=== PATIENT | male | born 1930 | race Caucasian/White ===

== ENCOUNTER → 2017-11-30 | Day surgery (SDC) | payer OTHER, MEDICARE ==
[~2017-11-30] VITALS: Ht 167.6 cm; Wt 62.1 kg
[~2017-11-30] MED LIST: AVAPRO150 M1 PO; CALCIUM600 M3 PO; CO Q-10100 MG PO; IPRATROPIUM BRO15 M1 NAS; KIDS COD LIVER1 EACH PO; LOSARTAN POTAS100 M1 PO; LOSARTAN-HCTZ1 EACH PO; OMEPRAZOLE40 M1 PO; ULTRAM50 M1 PO; ZOFRAN ODT4 M1 SL
--- NOTE | 2017-11-30 14:18 | Operative Report ---
Operative/Inv Procedure Report Surgery Date: 11/30/17 Name of Procedure: Right inguinal hernia repair with mesh, recurrent Pre-Operative Diagnosis: Recurrent right inguinal hernia Post-Operative Diagnosis: Same Estimated Blood Loss: less than 50ml Surgeon/Service Delivery Consultant: Riley MEREDITH,Shola Flowers/Blank Gregorio APRN Anesthesia: local monitored anesthesi Implants: Pariatex progrip Operative Indication: Patient presents with incarcerated right inguinal hernia, recurrent after laparoscopic repair approximately 10 years ago at an outside facility. He has intermittent obstructive findings and presents for elective repair Operative/Procedure Note Note: After consent he was brought to the operating room in supine. General anesthesia was obtained and is right groin is prepped and draped. The skin was after local anesthesia and a transverse incision made sharply. This obtains tissues with cautery and suture ligated the superficial epigastric vein. Using cautery dissection came down through Bonny's fascia down to the external oblique. Self-retaining retractor was placed. The cord was avulsed with local anesthesia and incision made along the direction of the fibers. The external oblique was then divided and elevated. The cord structures were circumferentially dissected with blunt dissection. A Tika drain was placed around it. We then dissected the hernia sac off of the cord structures. It is quite difficult as the vein and vas were somehow . There is a hernia sac in between them. It appeared to be more of an indirect recurrence. Although it was difficult to tell given the size of the hernia. Eventually able to free everything up and reduce the hernia. The tissue around the indirect area was sutured to keep the sac reduced. I then placed an onlay of [employer] pro-clinical law professor mesh. He was placed on the cord structures and anchored to itself. It was attached to the fascia at the pubic tubercle along the shelving edge and superior medially. This was performed with 2-0 Prolene. The wound was then irrigated with normal saline. The external oblique was then closed over the mesh with a running 2-0 Vicryl suture. The incision was then closed in layers with 3-0 and 4-0 Vicryl sutures. Steri-Strips and sterile dressing applied. Sponge and needle counts are correct Findings: Large indirect recurrence CC: Marcio MEREDITH,Chavez
== END ==
LOC: STS 01:41
DX: K40.31 Unilateral inguinal hernia, with obstruction, without gangrene, recurrent (principal); Z87.19 Personal history of other diseases of the digestive system; I10 Essential (primary) hypertension; Z87.891 Personal history of nicotine dependence
CPT/HCPCS: C1781; J0690; J3490

== ENCOUNTER 2017-12-07 12:35 | Emergency (ER) | payer OTHER, MEDICARE ==
[~2017-12-07] VITALS: Ht 167.6 cm; Wt 62.1 kg
[2017-12-07 13:10] LABS: ABSOLUTE BASOPHIL COUNT 0.1 /CUMM (0.0-0.2); ABSOLUTE EOSINOPHIL COUNT 0.2 /CUMM (0.0-0.7); ABSOLUTE GRANULOCYTE CT 7.5 /CUMM (1.4-6.5); ABSOLUTE LYMPH COUNT 1.5 /CUMM (1.2-3.4); ABSOLUTE MONOCYTE COUNT 1.1 /CUMM (0.10-0.60); BASOPHIL % 0.6 % (0.0-2.0); EOSINOPHIL % 1.9 % (0-5); HEMATOCRIT 43.4 % (42-52); MEAN CORPUSCULAR HGB 32.7 PG (27.0-31.0); MEAN CORPUSCULAR HGB CONC 34.9 G/DL (33.0-37.0); MEAN CORPUSCULAR VOLUME 93.6 FL (80.0-94.0); MEAN PLATELET VOLUME 8.2 FL (7.4-10.4); PLATELET COUNT 318 /CUMM (130-400); RBC DISTRIBUTION WIDTH 13.1 % (11.5-14.5); RED BLOOD CELL CT 4.64 /CUMM (4.70-6.10); WHITE BLOOD CELL COUNT 10.4 /CUMM (4.8-10.8)
--- NOTE | 2017-12-07 14:11 | ED GENERAL ADULT ---
History of Present Illness General Chief Complaint: Male Genitourinary Problems Stated Complaint: BLEEDING AND DISCOMFORT TO SCROTUM S/P OPERATION Source: patient Exam Limitations: poor historian Vital Signs & Intake/Output Vital Signs & Intake/Output Vital Signs Date Time Temp Pulse Resp B/P B/P Pulse O2 O2 Flow FiO2 Mean Ox Delivery Rate 12/07 1704 97.3 61 18 153/77 99 Room Air 12/07 1241 99.1 83 18 154/96 98 Room Air Allergies Coded Allergies: aspirin (UNKNOWN PER PT 11/28/17) Reconcile Medications Calcium (Elemental-Fr Calcarb) (Calcium) (Unknown Strength) TABLET (Unknown Dose) PO DAILY SUPPLEMENT (Reported) Ipratropium [place] 42 MCG (0.06 %) SPRAY 1 SPRAY MINI DAILY ALLERGIES ( Reported) Irbesartan (Avapro) 150 MG TABLET 1 TAB PO DAILY HEART (Reported) Losartan Potassium 100 MG TABLET 1 TAB PO DAILY HEART (Reported) Omeprazole 40 MG CAPSULE.DR 1 CAP PO DAILY GASTRITIS Tramadol HCl (Ultram) 50 MG TABLET 1 TAB PO Q6P PRN pain Ubidecarenone (Co Q-10) (Unknown Strength) CAPSULE (Unknown Dose) PO DAILY SUPPLEMENT (Reported) Vitamin A/C/D3/Cod Liver Oil (Kids Cod Liver Oil +D Tab Chew) (Unknown Strength) TAB.CHEW (Unknown Dose) PO DAILY SUPPLEMENT (Reported) Triage Note: PT STATES HE WAS BLEEDING FROM ONE OF HIS TESTICLES. PT STATES HE WENT TO HIS PCP DR. TAYLOR SAW SOMETHING IN HIS SCROTOM AND WANTED HIM TO BE CHECKED OUT BY DR. MORALES ? INCARCERATED HERNIA. PT DENIES PAIN AND STATES HIS LAST BM WAS THIS AM AND WAS NORMAL FOR HIM. Triage Nurses Notes Reviewed? yes Onset: Abrupt Duration: hour(s): Timing: recent history HPI: 12/07/17 3 PM 87-year-old man presents to the emergency department for right-sided scrotal bleeding. The patient had surgery a week ago by Dr. Morales for an inguinal hernia repair. He had been doing well although he's had some pain. Today he saw some bleeding and he saw his primary care doctor who recommended he be referred to the emergency department for surgical evaluation. On physical examination he has no active bleeding. He does have some induration below the incision site which is nontender. No active bleeding. The testicles are nontender. Past History Travel History Traveled to [place] past 21 day No Medical History Any Pertinent Medical History? see below for history Neurological: NONE EENT: NONE Cardiovascular: hypertension Respiratory: NONE Gastrointestinal: NONE Hepatic: NONE Renal: NONE Musculoskeletal: NONE Psychiatric: NONE Endocrine: NONE Blood Disorders: NONE Cancer(s): NONE Surgical History Surgical History: none Psychosocial History What is your primary language Czech Tobacco Use: Never used ETOH Use: denies use Illicit Drug Use: denies illicit drug use Family History Hx Contributory? No Review of Systems Review of Systems Constitutional: Denies: fever. EENTM: Reports: no symptoms. Respiratory: Denies: short of breath. Cardiovascular: Denies: chest pain. GI: Reports: abdominal pain. Genitourinary: Reports: no symptoms. Musculoskeletal: Reports: see HPI. Skin: Reports: see HPI. Neurological/Psychological: Reports: no symptoms. Hematologic/Endocrine: Reports: no symptoms. Immunologic/Allergic: Reports: no symptoms. Physical Exam Physical Exam General Appearance: alert, awake, anxious, mild distress Head: atraumatic Eyes: Bilateral: normal appearance, PERRL, EOMI. Ears, Nose, Throat: normal ENT inspection Neck: normal inspection Respiratory: no respiratory distress Cardiovascular: regular rate/rhythm Gastrointestinal: non-tender Back: normal range of motion Extremities: no edema Neurologic/Psych: no motor/sensory deficits, awake, alert, oriented x 3 Skin: intact, normal color, warm/dry Comments: He has an incision to his right groin that is clean, nontender, no active bleeding. He has a small abrasion to the scrotum that is not bleeding. There is no testicular swelling. He does have some induration below the incision site. Ultrasound was ordered of the indurated area and a surgical consultation was requested. Core Measures ACS in differential dx? No CVA/TIA Diagnosis: No Sepsis Present: No Sepsis Focused Exam Completed? No Progress Differential Diagnoses I considered the following diagnoses in my evaluation of the patient: [Hematoma, abscess, hernia] Plan of Care: Orders Procedure Date/time Status LACTIC ACID 12/07 1243 Complete COMPREHENSIVE METABOLIC PANEL 12/07 1243 Complete CBC WITHOUT DIFFERENTIAL 12/07 1243 Complete Laboratory Tests 12/07/17 1543: Lactic Acid Cancelled 12/07/17 1258: Anion Gap 11, Estimated GFR > 60, BUN/Creatinine Ratio 25.0, Glucose 100 H, Lactic Acid 1.0, Calcium 9.9, Total Bilirubin 1.2, AST 23, ALT 27, Alkaline Phosphatase 75, Total Protein 7.2, Albumin 4.0, Globulin 3.2, Albumin/Globulin Ratio 1.3, CBC w Diff NO MAN DIFF REQ, RBC 4.64 L, MCV 93.6, MCH 32.7 H, MCHC 34.9, RDW 13.1, MPV 8.2, Gran % 72.0, Lymphocytes % 14.5 L, Monocytes % 11.0 H , Eosinophils % 1.9, Basophils % 0.6, Absolute Granulocytes 7.5 H, Absolute Lymphocytes 1.5, Absolute Monocytes 1.1 H, Absolute Eosinophils 0.2, Absolute Basophils 0.1 Initial ED EKG: none Departure Departure Disposition: STILL A PATIENT Condition: Stable Clinical Impression Primary Impression: Inguinal swelling Referrals: Chavez Buckley MD (PCP/Family) Departure Forms: Customer Survey General Discharge Information Comments IMPRESSION: 1. Complex, septated, ellipsoidal, avascular fluid collection is identified underneath the scar tissue measuring 6.2 cm at its maximum craniocaudal dimension. Given the patient's history of recent surgery, this is most consistent with postsurgical seroma, resolving hematoma or a combination thereof, and less likely to be an infected collection. 2. There is no evidence of any bowel herniation identified within the right inguinal canal. There is significant soft tissue edema within the inguinal canal. 3. Multiple prominent veins are identified within the right inguinal canal extending inferiorly to the level of the epididymal head, most consistent with varicocele. 4. The visualized superiormost part of the right testicle sonographically appear unremarkable. DICTATED BY: Heena Templeton MD DATE/TIME DICTATED:12/07/171632 TRAY CHECKER:SHRUTI DATE/TIME TRANSCRIBED:12/07/171632 CONFIDENTIAL, DO NOT COPY WITHOUT APPROPRIATE AUTHORIZATION. <Electronically signed in Other Vendor System> SIGNED BY: Heena Templeton MD 12/07/171702 exam failed to reveal any bleeding. The patient was seen and evaluated by surgery. The case was discussed with Manuel Capellan MD. Ultrasound findings were reviewed. The patient was discharged and will follow-up with Dr. Morales as scheduled. Critical Care Note Critical Care Note Critical Care Time: non-applicable
--- NOTE | 2017-12-07 17:03 | ULTRASOUND REPORT ---
EXAMINATION: US PELVIS, LIMITED CLINICAL INFORMATION: 87-year-old male status post right inguinal hernia repair 7 days ago, presents with right groin swelling. COMPARISON: CT of the abdomen and pelvis done on 10/29/2017. TECHNIQUE: Limited ultrasound of the pelvis and right groin. FINDINGS: Targeted ultrasound of the right lower quadrant of the abdomen, pelvis and the right upper hemiscrotum showed the presence of an ellipsoidal, septated, avascular complex fluid collection underneath the scar tissue, which measures approximately 6.2 x 3.2 x 1.2 cm. Given the patient's history of recent surgery, this is most consistent with postsurgical seroma, resolving hematoma or a combination thereof. It is less likely to be an infected collection. Scanning of the right inguinal canal and right upper hemiscrotum shows no evidence of any bowel herniation. The right-sided spermatic cord however appears thickened, edematous and shows multiple prominent veins which are extending down to the level of the epididymal head. The findings would be consistent with a varicocele. Partially visualized superior part of the right testicle sonographically appears unremarkable. IMPRESSION: 1. Complex, septated, ellipsoidal, avascular fluid collection is identified underneath the scar tissue measuring 6.2 cm at its maximum craniocaudal dimension. Given the patient's history of recent surgery, this is most consistent with postsurgical seroma, resolving hematoma or a combination thereof, and less likely to be an infected collection. 2. There is no evidence of any bowel herniation identified within the right inguinal canal. There is significant soft tissue edema within the inguinal canal. 3. Multiple prominent veins are identified within the right inguinal canal extending inferiorly to the level of the epididymal head, most consistent with varicocele. 4. The visualized superiormost part of the right testicle sonographically appear unremarkable.
[2017-12-07 17:04] VITALS: BP 153/77
--- NOTE | 2017-12-07 18:26 | Cons- General Surgery ---
General Information and HPI Consulting Request Date of Consult: 12/07/17 Allergies/Medications Allergies: Coded Allergies: aspirin (UNKNOWN PER PT 11/28/17) Home Med List: Calcium (Elemental-Fr Calcarb) (Calcium) (Unknown Strength) TABLET (Unknown Dose) PO DAILY SUPPLEMENT (Reported) Ipratropium [place] 42 MCG (0.06 %) SPRAY 1 SPRAY MINI DAILY ALLERGIES ( Reported) Irbesartan (Avapro) 150 MG TABLET 1 TAB PO DAILY HEART (Reported) Losartan Potassium 100 MG TABLET 1 TAB PO DAILY HEART (Reported) Omeprazole 40 MG CAPSULE.DR 1 CAP PO DAILY GASTRITIS Tramadol HCl (Ultram) 50 MG TABLET 1 TAB PO Q6P PRN pain Ubidecarenone (Co Q-10) (Unknown Strength) CAPSULE (Unknown Dose) PO DAILY SUPPLEMENT (Reported) Vitamin A/C/D3/Cod Liver Oil (Kids Cod Liver Oil +D Tab Chew) (Unknown Strength) TAB.CHEW (Unknown Dose) PO DAILY SUPPLEMENT (Reported) Past History Medical History Neurological: NONE EENT: NONE Cardiovascular: hypertension Respiratory: NONE Gastrointestinal: NONE Hepatic: NONE Renal: NONE Musculoskeletal: NONE Psychiatric: NONE Endocrine: NONE Blood Disorders: NONE Cancer(s): NONE Surgical History Pertinent Surgical History: 1 Psychosocial History ETOH Use: denies use Illicit Drug Use: denies illicit drug use Exam & Diagnostic Data Vital Signs and I&O I rev Vital Signs Date Time Temp Pulse Resp B/P B/P Pulse O2 O2 Flow FiO2 Mean Ox Delivery Rate 12/07 1704 97.3 61 18 153/77 99 Room Air 12/07 1241 99.1 83 18 154/96 98 Room Air I rev Intake & Output 12/07 1600 12/07 0812/07 0000 12/06 1600 12/06 0800 12/06 0000 Intake Total 0 Output Total Balance 0 Intake, Oral 0 Patient 137 lb Weight Weight Reported by Patient Measurement Method Last 24 Hours of Labs: I rev Laboratory Tests 12/07 12/07 1543 1258 Chemistry Sodium (137 - 145 mmol/L) 138 Potassium (3.5 - 5.1 mmol/L) 4.3 Chloride (98 - 107 mmol/L) 99 Carbon Dioxide (22 - 30 mmol/L) 28 Anion Gap (5 - 16) 11 BUN (9 - 20 mg/dL) 20 Creatinine (0.7 - 1.2 mg/dL) 0.8 Estimated GFR (>60 ml/min) > 60 BUN/Creatinine Ratio (7 - 25 %) 25.0 Glucose (65 - 99 mg/dL) 100 H Lactic Acid (0.7 - 2.1 mmol/L) Cancelled 1.0 Calcium (8.4 - 10.2 mg/dL) 9.9 Total Bilirubin (0.2 - 1.3 mg/dL) 1.2 AST (17 - 59 U/L) 23 ALT (21 - 72 U/L) 27 Alkaline Phosphatase (< 127 U/L) 75 Total Protein (6.3 - 8.2 g/dL) 7.2 Albumin (3.5 - 5.0 g/dL) 4.0 Globulin (1.9 - 4.2 gm/dL) 3.2 Albumin/Globulin Ratio (1.1 - 2.2 %) 1.3 Hematology CBC w Diff NO MAN DIFF REQ WBC (4.8 - 10.8 /CUMM) 10.4 RBC (4.70 - 6.10 /CUMM) 4.64 L Hgb (14.0 - 18.0 G/DL) 15.2 Hct (42 - 52 %) 43.4 MCV (80.0 - 94.0 FL) 93.6 MCH (27.0 - 31.0 PG) 32.7 H MCHC (33.0 - 37.0 G/DL) 34.9 RDW (11.5 - 14.5 %) 13.1 Plt Count (130 - 400 /CUMM) 318 MPV (7.4 - 10.4 FL) 8.2 Gran % (42.2 - 75.2 %) 72.0 Lymphocytes % (20.5 - 51.1 %) 14.5 L Monocytes % (1.7 - 9.3 %) 11.0 H Eosinophils % (0 - 5 %) 1.9 Basophils % (0.0 - 2.0 %) 0.6 Absolute Granulocytes (1.4 - 6.5 /CUMM) 7.5 H Absolute Lymphocytes (1.2 - 3.4 /CUMM) 1.5 Absolute Monocytes (0.10 - 0.60 /CUMM) 1.1 H Absolute Eosinophils (0.0 - 0.7 /CUMM) 0.2 Absolute Basophils (0.0 - 0.2 /CUMM) 0.1 Assessment/Plan Consult Acknowledgment - Thank you for your consult request.
== END 2017-12-07 18:00 ==
LOC: ERH 12:35
PROVIDERS: Physician Assistant
DX: M79.89 Other specified soft tissue disorders (principal); N50.1 Vascular disorders of male genital organs; I10 Essential (primary) hypertension